=== PATIENT | male | born 1945 | race Caucasian/White ===

== ENCOUNTER → 2021-05-25 | Outpatient (CLI) | payer OTHER, MEDICARE ==
[~2021-05-25] MED LIST: ACET325C5 PO; DARO300T PO; IBUP200C33 PO; LISI-898 PO; LOPE1CAP5 PO; LYNP150T PO; NOXI1TAB PO; OXYC-517 PO; TRAM50TA2 PO; TRAZ-257 PO; VITA100T59 PO; ZOLO100T PO
--- NOTE | 2021-05-25 11:36 | RADONC.CN ---
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 Diagnosis/Treatment History Oncologic History As above, [facility] Recent data: 05/04/21 CT chest abdomen pelvis Healing fractures right 5th and 6th ribs Scattered sclerotic metastases partial collapse of T11 superior endplate Overall stable findings 05/21/21 PSA 25.5 Interval History Experiencing diarrhea, 4-5 x daily. Has started oxycodone for his bone pain however, and has noted decrease in need for imodium. Reports he has 2-3/10 mid back pain radiating to the right under the scapula, when he takes oxycodone. When the medication wears off the pain is 8-10/10. This mid-back pain is the dominant site of pain, he has scattered joint pains, aches, etc, but these are less bothersome and less focal. He has some persistent fatigue, and poor appetite. Has lost some weight. No history of prior radiation. No radionuclide therapy. Past Medical History: Anxiety HTN Past Surgical History: Hernia repair Left tib/fib surgery with jay Right hip pins Family History: No family history of cancer Social History: ~20 pack year former smoker wuit >40 years ago Does not drink Allergies / Meds Home Meds Reported Medications Trazodone HCl (Trazodone HCl) 100 Mg Tablet, 1 TAB PO QPM for 30 Days, #30 TAB 05/25/21 Sertraline Hcl (Zoloft) 100 Mg Tablet, 1 TAB PO DAILY for 30 Days, #30 TAB 05/25/21 Loperamide HCl (Loperamide) 2 Mg Capsule, 2 CAP PO Q6H for loose stools for 5 Days, #40 CAP 05/25/21 Ibuprofen (Motrin Ib) 200 Mg Capsule, 200 MG PO, CAP 05/25/21 Olaparib (Lynparza) 150 Mg Tablet, 150 MG PO, TAB 05/25/21 Tramadol HCl (Tramadol HCl) 50 Mg Tablet, 50 MG PO Q6HP PRN for pain MDD 4 Tablet(s) for 7 Days, #30 TAB 05/25/21 Oxycodone HCl (Oxycodone HCl) 5 Mg Tablet, 5 MG PO, TAB 05/25/21 Lisinopril (Lisinopril) 5 Mg Tablet, 1 TAB PO DAILY for 30 Days, #30 TAB 05/25/21 Acetaminophen (Tylenol) 325 Mg Capsule, 325 MG PO, CAP 05/25/21 Discontinued Reported Medications Sertraline Hcl (Zoloft) 100 Mg Tablet, 100 MG PO DAILY for 30 Days, #30 TAB 05/25/21 Review of Systems Constitutional: Reports: Fatigue, Weight Loss Eyes: Denies: Pain HEENT: Denies: Head Aches Pulmonary: Denies: Dyspnea Cardiovascular: Denies: Chest Pain Gastrointestinal: Reports: Diarrhea; Denies: Abdominal Pain, Melena, Hematochezia Genitourinary: Denies: Dysuria, Frequency Musculoskeletal: Reports: Back pain, Joint pain, Midthoracic pain; Denies: Neck pain, Spasms Neurological: Denies: Weakness, Numbness Psych: Reports: Mood Normal Vital Signs Wt 155 lbs T 97 P 86 RR 18 BP 114/72 O2 95% Pain 3 Fatigue 6 General Exam: Positive: Alert, Cooperative, No Acute Distress Eye Exam: Positive: PERRLA, EOMI ENT EXAM: Positive: Mucous membr. moist/pink, Pharynx Normal Neck Exam: Negative: Thyromegaly, Lymphadenopathy Chest Exam: Positive: Clear to auscultation Heart Exam: Positive: Rate Normal Abdomen Exam: Positive: Soft; Negative: Tenderness Extremity Exam: Negative: Edema Skin Exam: Positive: Nl turgor and temperature; Negative: Rash Neuro Exam: Positive: Normal Gait, Normal Speech, Strength at 5/5 X4 ext, Cranial Nerves 3-12 NL Psych Exam: Positive: Mental status NL, Mood NL, Memory Intact Other Physical Findings No significant tenderness to palpation over the coleman-spine Diagnostic and Laboratory Diagnostic Review Radiologic images, relevant labs and pathology reports were personally reviewed and discussed with Mr. Saunders. Assessment and Plan Impression Mr. 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 Stage Prostate cancer M1b stage IV Performance Status ECOG 1 Plan We had an extensive discussion with Mr. Saunders regarding the diagnosis at hand and available therapeutic options. On review of [facility] (we are awaiting the physical images on disc for review) he has disease in the thoracic spine, which localizes to the epicenter of his pain. I explained that he would likely benefit from palliative RT to the spine. I would give 20 Gy in 5 fractions, in effort to give him durable pain control. The alternative of single fraction treatment was also broached, however single fraction treatment results in higher re-treatment rates, which would be wasteful in this case. I also discussed that if there are any additional foci of pain with a CT correlate when we do the planning session, that we could add another site and treat simultaneously. I also briefly discussed that he is currently responding to olaparib, considered by his medical oncologist to be the last-line of systemic therapy available. If he were to fail olaparib, based on his imaging, he could qualify for xofigo treatment, which I do offer here. The only caveat is whether or not he has adequate marrow reserve. We could consider this [id number] if it is in keeping with his goals of treatment. We discussed the logistics of receiving radiation therapy in detail including the need for a 1-time planning session. This can occur later this week. Treatment can start the following week. We reviewed side effects of treatment including mild fatigue, and esophagitis. After discussing the risks, benefits and alternatives to radiation therapy, Mr. Saunders was amenable to pursuing radiotherapy. All questions were answered to the patient's satisfaction. We instructed the patient that if there were any questions,concerns or changes in clinical status in the interim to contact us. Recommendations Palliative RT to the thoracic spine 20 Gy in 5 fractions Simulation in the coming days Can consider xofigo if he fails olaparib (offered here) Billing Statement Total time of [33] minutes was spent preparing for the visit [2], obtaining HPI [4], examining the patient [2], reviewing diagnostic tests [4], discussing management options [10], coordinating care [2], and writing this note [9]. JERMAINE TINEO MD May 25, 2021 11:36
== END ==
LOC: M ONCR 10:01
PROVIDERS: ATTEND General Practice
DX: C61 Malignant neoplasm of prostate (principal); C79.49 Secondary malignant neoplasm of other parts of nervous system; G89.3 Neoplasm related pain (acute) (chronic); R53.83 Other fatigue; F41.9 Anxiety disorder, unspecified; I10 Essential (primary) hypertension; R19.7 Diarrhea, unspecified; M54.5 Low back pain

== ENCOUNTER 2021-05-27 09:33 | Outpatient (RCR) | payer OTHER, MEDICARE | END 2021-05-29 | LOC: M ONCR 09:33 | PROVIDERS: ATTEND General Practice | DX: C79.51 Secondary malignant neoplasm of bone (principal) ==

== ENCOUNTER 2021-06-11 09:16 | Outpatient (RCR) | payer OTHER ==
[~2021-06-11 09:16] MED LIST changes: -LISI-898 PO; +LISI5TAB11 PO
== END 2021-06-29 ==
LOC: M ONCR 09:16
PROVIDERS: ATTEND General Practice
DX: C79.51 Secondary malignant neoplasm of bone (principal)

== ENCOUNTER → 2021-06-11 | Outpatient (CLI) | payer OTHER ==
[2021-06-11 10:35] LABS: BASO % 0.2 % (0.0-1.0); EOS # 0.1 10^3/uL (0.0-0.5); HEMATOCRIT 28.6 % (42.0-52.0); HEMOGLOBIN 9.5 g/dl (13.5-17.5); LYMPH # 0.4 10^3/uL (1.5-5.0); LYMPH % 5.9 % (24.0-44.0); MEAN CORPUSCULAR HEMOGLOBIN 34.3 pg (27.0-33.0); MEAN CORPUSCULAR HGB CONC 33.2 g/dl (32.0-36.5); MEAN CORPUSCULAR VOLUME 103.2 fl (80.0-96.0); MONO # 0.3 10^3/uL (0.0-0.8); MONO % 4.8 % (2.0-8.0); NEUTROPHILS # 5.5 10^3/uL (1.5-8.5); NEUTROPHILS % 87.3 % (36.0-66.0); PLATELET COUNT, AUTOMATED 214 10^3/uL (150-450); RED BLOOD COUNT 2.77 10^6/uL (4.30-6.10); WHITE BLOOD COUNT 6.3 10^3/uL (4.0-10.0)
[2021-06-11 11:11] LABS: ALBUMIN 3.3 GM/DL (3.2-5.2); ALT/SGPT 43 U/L (12-78); BILIRUBIN,TOTAL 0.4 MG/DL (0.2-1.0); BLOOD UREA NITROGEN 27 MG/DL (7-18); CALCIUM LEVEL 8.3 MG/DL (8.8-10.2); CARBON DIOXIDE LEVEL 26 MEQ/L (21-32); CHLORIDE LEVEL 99 MEQ/L (98-107); CREATININE FOR GFR 1.19 MG/DL (0.70-1.30); FREE T4 0.99 NG/DL (0.76-1.46); GLOMERULAR FILTRATION RATE > 60.0 (>42); GLUCOSE, FASTING 114 MG/DL (70-100); POTASSIUM SERUM 4.4 MEQ/L (3.5-5.1); SODIUM LEVEL 134 MEQ/L (136-145); THYROID STIMULATING HORMONE 0.966 uIU/ML (0.358-3.740); TOTAL PROTEIN 6.3 GM/DL (6.4-8.2)
== END ==
LOC: M ONCR 09:58
PROVIDERS: ATTEND General Practice
DX: C79.51 Secondary malignant neoplasm of bone (principal); Z79.899 Other long term (current) drug therapy

== ENCOUNTER → 2021-09-03 | Outpatient (CLI) | payer OTHER ==
[~2021-09-03] MED LIST changes: +LISI-898 PO; -LISI5TAB11 PO
--- NOTE | 2021-09-03 10:07 | RADONC ---
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 He completed palliative RT 20 Gy om 5 fractions to T10-11 06/07/21- 06/11/21. Diagnosis/Treatment History Oncologic History As above, records received from [facility] not comprehensive Recent data: 05/04/21 CT chest abdomen pelvis Healing fractures right 5th and 6th ribs Scattered sclerotic metastases partial collapse of T11 superior endplate Overall stable findings 05/21/21 PSA 25.5 06/07/21-06/11/21 20 Gy in 5 fractions to T10-10 July 2021 Hospitalized for a week due to nausea/vomiting/diarrhea. Olaparib held PSA to 34. July 2021 resumed Olaparib, PSA to 17. Interval History Reports he had significant GI difficulties after RT, leading to hospitalization in June 2021. He has recovered from the nausea/vomiting/loss of appetite. He still received RBC transfusions periodically. Thankfully, his pain in the previously affected distribution is now gone post-RT. He is not taking oxycodone any longer. He has some new back pain however, above the previously treated levels, which is dull 2/10 at worst. He would like to avoid intervention for this new pain at this time. Current Therapy Olaparib, ADT Stage Prostate cancer M1b stage IV Social History: ~20 pack year former smoker wuit >40 years ago Does not drink Allergies / Meds Home Meds Reported Medications Vitamin D3/Folic Acid (Noxifol-D3 2,500 Unit-1 mg Tab) 2,500 Unit Tablet, 1 TAB PO DAILY for 30 Days, #30 TAB 05/25/21 Ascorbic Acid (Vitamin C) 100 Mg Tablet, 1 TAB PO DAILY for 30 Days, #30 TAB 05/25/21 Darolutamide (Nubeqa) 300 Mg Tablet, 300 MG PO, TAB 05/25/21 Trazodone HCl (Trazodone HCl) 100 Mg Tablet, 1 TAB PO QPM for 30 Days, #30 TAB 05/25/21 Sertraline Hcl (Zoloft) 100 Mg Tablet, 1 TAB PO DAILY for 30 Days, #30 TAB 05/25/21 Loperamide HCl (Loperamide) 2 Mg Capsule, 2 CAP PO Q6H for loose stools for 5 Days, #40 CAP 05/25/21 Ibuprofen (Motrin Ib) 200 Mg Capsule, 200 MG PO, CAP 05/25/21 Olaparib (Lynparza) 150 Mg Tablet, 150 MG PO, TAB 05/25/21 Tramadol HCl (Tramadol HCl) 50 Mg Tablet, 50 MG PO Q6HP PRN for pain MDD 4 Tablet(s) for 7 Days, #30 TAB 05/25/21 Oxycodone HCl (Oxycodone HCl) 5 Mg Tablet, 5 MG PO, TAB 05/25/21 Lisinopril (Lisinopril) 5 Mg Tablet, 1 TAB PO DAILY for 30 Days, #30 TAB 05/25/21 Acetaminophen (Tylenol) 325 Mg Capsule, 325 MG PO, CAP 05/25/21 Review of Systems Review of Systems Constitutional: Reports: Fatigue; Denies: Weight Loss Eyes: Denies: Pain HEENT: Denies: Head Aches Cardiovascular: Denies: Chest Pain Gastrointestinal: Denies: Nausea, Vomiting, Abdominal Pain, Diarrhea Hematologic: Denies: Bruising, Bleeding Excessively Musculoskeletal: Reports: Back pain; Denies: Neck pain, Shoulder pain, Leg pain Neurological: Denies: Weakness, Numbness Psych: Reports: Mood Normal Physical Examination Vital Signs Wt 147.8 T 96.8 P 83 RR 17 BP 116/64 O2 98% Pain 1 Fatigue 0 General Exam: Alert, Cooperative, No Acute Distress Eye Exam: PERRLA, EOMI ENT EXAM: Atraumatic Neck Exam: Supple Chest Exam: Clear to auscultation Heart Exam: Rate Normal Abdomen Exam: Soft Extremity Exam: Other (Mild tenderness to palpation ~T7-8 level extending to right paraspinal musculature); Negative: Edema Neuro Exam: Normal Gait, Normal Speech, Cranial Nerves 3-12 NL Psych Exam: Mental status NL Diagnostic and Laboratory Diagnostic Review Radiologic images, relevant labs and pathology reports were personally reviewed and discussed with Mr. Saunders. Assessment and Plan Impression Assessment Mr. 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 He completed palliative RT 20 Gy om 5 fractions to T10-11 06/07/21- 06/11/21. He had a significant bout of GI symptoms in the post RT period, this could be related to integral dose from the radiation, and/or exacerbated by withdrawal of the oxycodone, which in the setting of his pain relief from RT, may have been abrupt enough to precipitate diarrhea, and anorexia as is common with opioid withdrawal. At any rate, his pain relief from treatment persists, and he has no immediate need of additional RT for pain relief as his only site of pain in the mid-back is not bothersome at this time. In the future given the possible adverse reaction to RT, I discussed doing 8Gy x 1 treatments for any other bothersome bone metastases. As he is transfusion dependent and olaparib remains effective, he is not be a candidate for xofigo. I will see him again in 6 months. Performance Status ECOG 1 Plan Follow up in 6 months No additional RT at this time Mr. Saunders was encouraged to call with questions or concerns in the interim period. Billing Statement Total time of [22] minutes was spent preparing for the visit [2], obtaining HPI [5], examining the patient [1], reviewing diagnostic tests [0], discussing management options [5], coordinating care [2], and writing this note [7]. JERMAINE TINEO MD Sep 03, 2021 10:07
== END ==
LOC: M ONCR 08:42
PROVIDERS: ATTEND General Practice
DX: C79.51 Secondary malignant neoplasm of bone (principal); C61 Malignant neoplasm of prostate; T80.89XD Other complications following infusion, transfusion and therapeutic injection, subsequent encounter; Z92.3 Personal history of irradiation; Z79.899 Other long term (current) drug therapy